=== PATIENT | male | born 1965 | race Caucasian/White ===

== ENCOUNTER 2020-09-11 15:18 | Emergency (ER) | payer OTHER ==
[~2020-09-11] VITALS: Ht 172.7 cm; Wt 118.2 kg
[2020-09-11 15:21] VITALS: BP 135/80
== END 2020-09-11 16:27 | disposition home or self-care (01) ==
LOC: EMS 15:20
DX: B02.9 Zoster without complications (principal)
CPT/HCPCS: 99283; Z7502